=== PATIENT | male | born 1990 | race Caucasian/White ===

== ENCOUNTER 2016-10-04 03:30 | Emergency (ER) | payer OTHER ==
[~2016-10-04] VITALS: Ht 182.9 cm; Wt 128.6 kg
[2016-10-04 05:00] VITALS: BP 146/106
== END 2016-10-04 05:00 | disposition home or self-care (01) ==
LOC: EXP 03:30 → EME 03:30 → EXP 05:00
DX: S63.613A Unspecified sprain of left middle finger, initial encounter (principal); Y35.811A Legal intervention involving manhandling, law enforcement official injured, initial encounter; Y92.149 Unspecified place in prison as the place of occurrence of the external cause; Y99.0 Civilian activity done for income or pay
CPT/HCPCS: 73130; 99281; 99284